=== PATIENT | male | born 1965 | race Caucasian/White ===

== ENCOUNTER 2016-07-06 09:29 | Emergency (ER) | payer BC ==
[2016-07-06 09:52] VITALS: BP 138/82
--- NOTE | 2016-07-06 10:41 | UC ---
Lower Extremity/Ankle HPI - HPI Summary HPI Summary: He says this pain has been present in left 5th toe with swelling for about a week. it started gradually. it feels like prior episodes of gout. he has mild kidney disease but nephrology cleared him years ago. he has had colchicine in the past as well as prednisone. No trauma or fb. no fever or chills. no DM. - History of Current Complaint Chief Complaint: UCLowerExtremity Stated Complaint: LEFT FOOT COMPLAINT Time Seen by Provider: 07/06/16 10:25 Onset/Duration: Gradual Onset, Lasting Days Severity Initially: Mild Severity Currently: Moderate Aggravating Factor(s): Standing Alleviating Factor(s): Rest Able to Bear Weight: Yes - Risk Factors Gout Risk Factors: Age Over 40, Male, Hypertension DVT Risk Factors: Negative - Allergies/Home Medications Allergies/Adverse Reactions: Allergies Allergy/AdvReac Type Severity Reaction Status Date / Time No Known Allergies Allergy Verified 07/06/16 09:54 Home Medications: Home Medications Icosapent Ethyl [Vascepa] 2 tab PO BID 07/06/16 [History Confirmed 07/06/16] PMH/Surg Hx/FS Hx/Imm Hx Cardiovascular History Of: Reports: Hypertension - he also has hx of gout. - Surgical History Surgical History: None - Family History Known Family History: Negative: Diabetes - Social History Occupation: Employed Full-time Alcohol Use: Daily Alcohol Amount: 3 12 ox cans of beer daily Substance Use Type: None Smoking Status (MU): Never Smoked Tobacco Review of Systems All Other Systems Reviewed And Are Negative: Yes Physical Exam Triage Information Reviewed: Yes Appearance: Well-Appearing, No Pain Distress, Well-Nourished Vital Signs: Initial Vital Signs Temp 98.8 F 07/06/16 09:49 Pulse 85 07/06/16 09:49 Resp 14 07/06/16 09:49 BP 138/82 07/06/16 09:49 Pulse Ox 97 07/06/16 09:49 Vital Signs Reviewed: Yes Eyes: Positive: Conjunctiva Clear. Negative: Conjunctiva Inflamed ENT Exam: Normal ENT: Positive: Normal ENT inspection, Hearing grossly normal, Pharynx normal, TMs normal. Negative: Pharyngeal erythema, Nasal congestion, Nasal drainage, TM bulging, TM dull, TM red, Tonsillar swelling, Tonsillar exudate, Trismus, Muffled/hoarse voice Neck exam: Normal Neck: Positive: Supple, Nontender, No Lymphadenopathy. Negative: Nuchal Rigidity Respiratory Exam: Normal Respiratory: Positive: Chest non-tender, Lungs clear, Normal breath sounds, No respiratory distress, No accessory muscle use. Negative: Respiratory distress Cardiovascular Exam: Normal Cardiovascular: Positive: RRR, No Murmur, Pulses Normal Abdominal Exam: Normal Abdomen Description: Positive: Nontender Musculoskeletal: Positive: Strength Intact, ROM Intact, Edema @ - left pinky toe swelling without streaking. MIldly tender. No PW Neurological Exam: Normal Neurological: Positive: Alert, Muscle Tone Normal. Negative: Fatigued, Lethargic, Unresponsive Psychological Exam: Normal Skin Exam: Normal Skin: Negative: rashes Lower Extremity Course/Dx - Course Course Of Treatment: He states this is c/w with prior gout. We will try two doses of colchris and steroids. he will return for futher workup such as x ray if not improved in the next two days. - Differential Dx/Diagnosis Differential Diagnosis/HQI/PQRI: Arthritis, Burn, Burn Localized, Bursitis, Cellulitis, Compartment Syndrome, Contusion, Dislocation, DVT, Foreign Body, Fracture (Closed), Fracture (Open), Gout, Infection, Osteomyelitis, Phlebitis, Puncture Wound, Septic Arthritis, Subungual Hematoma, Sprain, Strain, Tendonitis , Tenosynovitis Provider Diagnoses: gout left foot. Discharge - Discharge Plan Condition: Good Disposition: HOME Prescriptions: Colchicine* [Colcrys*] 0.6 mg PO BID #2 tab predniSONE TAB* [Deltasone TAB*] 1 tab PO DAILY #35 tab Patient Education Materials: Gout (ED) Referrals: Vel Lopez MD [Primary Care Provider] - 2 Days
== END 2016-07-06 10:53 | disposition home or self-care (01) ==
LOC: UCCORT 09:29
DX: M10.072 Idiopathic gout, left ankle and foot (principal); I10 Essential (primary) hypertension
CPT/HCPCS: 99202; G0463

== ENCOUNTER 2016-12-13 15:22 | Emergency (ER) | payer BC, OTHER ==
[2016-12-13 15:37] VITALS: BP 127/77
--- NOTE | 2016-12-13 15:46 | UC ---
Lower Extremity/Ankle HPI - HPI Summary HPI Summary: left ankle pain x 2 days no known injury , + swelling / redness and warm to tough no fever, no chill, very painful to walk hx of Gout - History of Current Complaint Chief Complaint: UCLowerExtremity Stated Complaint: LEFT FOOT/ANKLE PAIN Time Seen by Provider: 12/13/16 15:32 Hx Obtained From: Patient Onset/Duration: Gradual Onset, Lasting Days - 2, Still Present Severity Initially: Moderate Severity Currently: Moderate Aggravating Factor(s): Standing, Ambulation Alleviating Factor(s): Rest, Elevation, Ice Able to Bear Weight: Yes - Allergies/Home Medications Allergies/Adverse Reactions: Allergies Allergy/AdvReac Type Severity Reaction Status Date / Time NSAIDs AdvReac Unknown hx of Verified 12/13/16 15:29 kidney disease. Avoids NSAIDS. PMH/Surg Hx/FS Hx/Imm Hx - Additional Past Medical History Additional PMH: hx of Gout Cardiovascular History: Hypertension - Surgical History Surgical History: None - Family History Known Family History: Negative: Diabetes - Social History Alcohol Use: Daily Alcohol Amount: 3 12 ox cans of beer daily Substance Use Type: None Smoking Status (MU): Former Smoker When Did the Patient Quit Smoking/Using Tobacco: 25 YRS AGO - Immunization History Most Recent Influenza Vaccination: 11/28/16 Review of Systems Constitutional: Negative Skin: Negative Eyes: Negative ENT: Negative Respiratory: Negative Cardiovascular: Negative Gastrointestinal: Negative All Other Systems Reviewed And Are Negative: Yes Physical Exam Triage Information Reviewed: Yes Appearance: Well-Appearing, No Pain Distress, Well-Nourished Vital Signs: Initial Vital Signs Temp 98.4 F 12/13/16 15:29 Pulse 102 12/13/16 15:29 Resp 18 12/13/16 15:29 BP 127/77 12/13/16 15:29 Pulse Ox 98 12/13/16 15:29 Vital Signs Reviewed: Yes Eyes: Positive: Conjunctiva Clear ENT: Positive: Normal ENT inspection, Hearing grossly normal, Pharynx normal Neck: Positive: Supple, Nontender Respiratory: Positive: Chest non-tender, Lungs clear, Normal breath sounds Cardiovascular: Positive: RRR, No Murmur Musculoskeletal: Positive: Other: - left ankle : + swelling , erythem , tenderness Lower Extremity Course/Dx - Differential Dx/Diagnosis Provider Diagnoses: gout left ankle Discharge - Discharge Plan Condition: Stable Disposition: HOME Prescriptions: Prednisone 20 mg PO BID #14 tab Patient Education Materials: Gout (ED) Referrals: Vel Lopez MD [Primary Care Provider] - 7 Days
== END 2016-12-13 15:56 | disposition home or self-care (01) ==
LOC: UCCORT 15:22
DX: M10.072 Idiopathic gout, left ankle and foot (principal); I10 Essential (primary) hypertension; Z88.6 Allergy status to analgesic agent; Z87.891 Personal history of nicotine dependence
CPT/HCPCS: 99212; G0463

== ENCOUNTER 2017-02-18 08:58 | Emergency (ER) | payer OTHER ==
--- NOTE | 2017-02-18 09:57 | UC ---
Lower Extremity/Ankle HPI - HPI Summary HPI Summary: 51 y/o male PMHX GOUT presents to the urgent care c/o LF ankle redness and swelling for the past 2 days. Pt reports he can't take any NSAIDs due to his kidney function. He states he gets Prednisone PO and his gout flare up resolves in a couple of days. Pt states pain is localized to lateral side of left ankle, Pain is 7/10. Pt dneis fever, SOB, numbness or tingling sensation over the foot or toes, abdominal pain, urinary symptoms or back pain. - History of Current Complaint Chief Complaint: UCLowerExtremity Stated Complaint: RIGHT ANKLE COMPLAINT Time Seen by Provider: 02/18/17 09:56 Hx Obtained From: Patient Onset/Duration: Gradual Onset, Lasting Days - 2 days, Still Present Severity Initially: Moderate Severity Currently: Moderate Pain Intensity: 7 Pain Scale Used: 0-10 Numeric Aggravating Factor(s): Standing, Ambulation Alleviating Factor(s): Rest Able to Bear Weight: Yes - Risk Factors Gout Risk Factors: Negative DVT Risk Factors: Negative Septic Arthritis Risk Factor: Negative - Allergies/Home Medications Allergies/Adverse Reactions: Allergies Allergy/AdvReac Type Severity Reaction Status Date / Time NSAIDs AdvReac Unknown hx of Verified 02/18/17 09:42 kidney disease. Avoids NSAIDS. PMH/Surg Hx/FS Hx/Imm Hx Previously Healthy: Yes Other Endocrine History: GOUT Cardiovascular History: Hypertension - Surgical History Surgical History: None - Family History Known Family History: Positive: Hypertension, Diabetes - Social History Occupation: Employed Full-time Lives: With Family Alcohol Use: Daily Alcohol Amount: 3 12 ox cans of beer daily Substance Use Type: None Smoking Status (MU): Former Smoker When Did the Patient Quit Smoking/Using Tobacco: 25 YRS AGO - Immunization History Most Recent Influenza Vaccination: 11/28/16 Review of Systems Constitutional: Negative Skin: Negative Eyes: Negative ENT: Negative Respiratory: Negative Cardiovascular: Negative Gastrointestinal: Negative Genitourinary: Negative Motor: Negative Neurovascular: Negative Musculoskeletal: Other: - Left ankle pain and swelling Neurological: Negative Psychological: Negative Is Patient Immunocompromised?: No All Other Systems Reviewed And Are Negative: Yes Physical Exam Triage Information Reviewed: Yes Vital Signs: Initial Vital Signs Temp 97.3 F 02/18/17 09:42 Pulse 75 02/18/17 09:42 Resp 18 02/18/17 09:42 BP 136/88 02/18/17 09:42 Pulse Ox 100 02/18/17 09:42 - Additional Comments Vital Signs Reviewed: Yes General: well developed, well nourished male, sitting in the examining table w/ o any apparent distress Eyes: Positive: Conjunctiva Clear - PERRLA, EOMI, ENT: Positive: Normal ENT inspection, Hearing grossly normal, Pharynx normal, TMs normal Neck: Positive: Supple, Nontender, No Lymphadenopathy Respiratory: Positive: Chest non-tender, Lungs clear, Normal breath sounds, No respiratory distress Cardiovascular: Positive: RRR, No Murmur, Pulses Normal, Brisk Capillary Refill Abdomen Description: Positive: Nontender, No Organomegaly, Soft. Negative: CVA Tenderness (R), CVA Tenderness (L) Bowel Sounds: Positive: Present Musculoskeletal: -RT Ankle: Pt is able to bear weight and ambulate w/ mild limping. The R ankle is without obvious asymmetry or deformity when compared to the L ankle. Decrease ROM due to pain. Moderate swelling at the lateral malleolus, with tenderness to palpation. No ecchymosis or bruising observed. Talar tilt test is negative for ligament laxity to valgus or varus stress. Negative anterior drawer. Peroneal nerve is intact with strong eversion and plantar flexion. Positive sensation over the Rt foot and Rt ankle, positive pulses, capillary refill intact Neurological Exam: Normal Psychological Exam: Normal Skin: warm and dry Lower Extremity Course/Dx - Course Course Of Treatment: 51 y/o male PMHX GOUT presents to the urgent care c/o LF ankle redness and swelling for the past 2 days. Pt reports he can't take any NSAIDs due to his kidney function. He states he gets Prednisone PO and his gout flare up resolves in a couple of days. Pt states pain is localized to lateral side of left ankle, Pain is 7/10. Pt dneis fever, SOB, numbness or tingling sensation over the foot or toes, abdominal pain, urinary symptoms or back pain.Hx obtained. Pt with acute flare up of his Gout in the left ankle. Pt Rx Prednisone PO to alleviate symptoms. Stongly advised to f/u with PCP for blood work and further management in his gout since in the past year he has had 3 episodes of gout. Pt understood and agreed with plan of care. - Differential Dx/Diagnosis Differential Diagnosis/HQI/PQRI: Arthritis, Bursitis, Contusion, Fracture ( Closed), Gout, Infection, Sprain, Strain, Tendonitis, Other - RA Provider Diagnoses: 1- Left ankle with acute GOUT Discharge - Discharge Plan Condition: Stable Disposition: HOME Prescriptions: predniSONE TAB* [Deltasone TAB*] 20 mg PO DAILY #14 tab Patient Education Materials: Gout (ED) Referrals: Vel Lopez MD [Primary Care Provider] - 1 Week Additional Instructions: 1-Please take medications as directed to alleviate pain and swelling. 2- Keep your leg elevated and avoid heavy lifting 3- Please f/u with your PCP in 1 week is not improvement of symptoms for further evaluation and treatment.
[2017-02-18 10:13] VITALS: BP 136/88
== END 2017-02-18 10:22 | disposition home or self-care (01) ==
LOC: UCCORT 08:58
DX: M10.071 Idiopathic gout, right ankle and foot (principal); I10 Essential (primary) hypertension; Z88.6 Allergy status to analgesic agent; Z87.891 Personal history of nicotine dependence
CPT/HCPCS: 99212; G0463